=== PATIENT | male | born 1950 | race Caucasian/White ===

== ENCOUNTER 2024-09-13 09:25 | Outpatient (CLI) | payer MEDICARE ==
[2024-09-13] MEDS ORDERED: Magnevist 469MG/ML 20 ML VIAL ONE (10:16)
== END 2024-09-13 09:26 | disposition home or self-care (01) ==
LOC: CSHMRI 09:25
PROVIDERS: ATTEND Family Medicine
DX: R16.0 Hepatomegaly, not elsewhere classified (principal); C22.0 Liver cell carcinoma
CPT/HCPCS: 74183